=== PATIENT | male | born 1995 | race Caucasian/White ===

== ENCOUNTER 2016-09-25 22:33 | Emergency (ER) | payer OTHER | END 2016-09-26 00:04 | disposition home or self-care (01) | DX: F32.9 Major depressive disorder, single episode, unspecified (principal); R45.851 Suicidal ideations ==

== ENCOUNTER 2019-01-19 11:27 | Emergency (ER) | payer OTHER ==
[2019-01-19 12:06] VITALS: BP 145/77
[2019-01-19] MEDS ORDERED: BACITRACIN OINT TOP STA (12:21)
[2019-01-19] MEDS ORDERED: BACITRACIN OINT TOP ONE (12:26)
--- NOTE | 2019-01-19 12:27 | ED Physician Documentation ---
History of Present Illness - Stated complaint Stated Complaint: DOG BITE HANDS - Chief complaint Chief Complaint: Laceration - History obtained from History obtained from: Patient, Family - History of Present Illness Timing: Today Pain level max: 3 Pain level now: 3 Improved by: nothing Worsened by: nothing - Additonal information Additional information: 23-year-old male, active [employer], tetanus is up-to-date. Was bit by a small dog this morning. States they are puppy sitting. Bites to the bilateral hands. Immunizations are up-to-date for the animal as well Review of Systems Constitutional: denies: Fever Skin: denies: Rash Musculoskeletal: denies: Neck pain, Back pain Neurologic: denies: Headache PD PAST MEDICAL HISTORY - Past Medical History Past Medical History: No - Past Surgical History Past Surgical History: No - Present Medications Home Medications: Ambulatory Orders Medication Instructions Recorded Confirmed Amox/Clav 875/125 [Augmentin] 1 each PO Q12H #20 tablet 01/19/19 Ibuprofen [Motrin] 800 mg PO Q8H PRN #30 tablet 01/19/19 - Allergies Allergies/Adverse Reactions: Allergies Allergy/AdvReac Type Severity Reaction Status Date / Time No Known Drug Allergies Allergy Verified 07/23/16 02:59 - Social History Does the pt smoke?: No Smoking Status: Never smoker Does the pt drink ETOH?: Yes Does the pt have substance abuse?: No - Immunizations Immunizations are current?: Yes - POLST Patient has POLST: No PD ED PE NORMAL - Vitals Vital signs reviewed: Yes - General General: Alert and oriented X 3, No acute distress - HEENT HEENT: Moist mucous membranes - Derm Derm: Warm and dry - Extremities Extremities: Other (Superficial lacerations to the bilateral hands. None require suturing. No evidence of tendon or bony injury.. Neurovascular intact. Full range of motion present) - Neuro Neuro: Alert and oriented X 3 Results - Vitals Vitals: Vital Signs - 24 hr 01/19/19 12:04 Temperature 36.6 C Heart Rate 79 Respiratory 16 Rate Blood Pressure 145/77 H O2 Saturation 97 Oxygen O2 Source Room air PD MEDICAL DECISION MAKING - ED course Complexity details: considered differential, d/w patient ED course: Wounds were cleansed in the emergency department. Will place on Augmentin. We will follow-up with his doctor for further care. Warnings of infection and instructions on wound care given at bedside. Also counseled on how to minimize scarring. Patient and family counseled regarding signs and symptoms for which I believe and urgent re-evaluation would be necessary. Patient with good understanding of and agreement to plan and is comfortable going home at this time This document was made in part using voice recognition software. While efforts are made to proofread this document, sound alike and grammatical errors may occur. Departure - Departure Disposition: 01 Home, Self Care Clinical Impression: Dog bite Qualifiers: Encounter type: initial encounter Qualified Code(s): W54.0XXA - Bitten by dog, initial encounter Instructions: ED Bite Animal General Follow-Up: your,doctor in 3 days for wound check [Other] Prescriptions: Amox/Clav 875/125 [Augmentin] 1 each PO Q12H #20 tablet Ibuprofen [Motrin] 800 mg PO Q8H PRN #30 tablet PRN Reason: PAIN &/OR FEVER Comments: Return if you worsen. Return especially for redness, swelling or drainage from the wound. Take all antibiotics until gone.
== END 2019-01-19 12:49 | disposition home or self-care (01) ==
LOC: ED 11:27
DX: S60.571A Other superficial bite of hand of right hand, initial encounter (principal); S60.572A Other superficial bite of hand of left hand, initial encounter; W54.0XXA Bitten by dog, initial encounter; Y93.89 Activity, other specified
CPT/HCPCS: 99283; A9270